=== PATIENT | male | born 1995 ===

== ENCOUNTER → 2018-06-03 | Outpatient (REF) ==
--- NOTE | 2018-06-03 12:32 | Diagnostic Imaging Report ---
INDICATION: Preemployment physical. EXAMINATION: PA chest at 12:19 PM. FINDINGS: The heart and mediastinum are normal. The lungs are clear. There are no effusions or pneumothoraces. IMPRESSION: Negative chest. Dictated by: Dictated on workstation # [id number]
== END | disposition home or self-care (01) ==
LOC: RAD 12:03
PROVIDERS: ATTEND Family Medicine
CPT/HCPCS: 71045; 93005